=== PATIENT | female | born 1960 | race Caucasian/White ===

== ENCOUNTER 2017-09-15 19:17 | Emergency (ER) | payer OTHER ==
[~2017-09-15] VITALS: Ht 160 cm; Wt 61.0 kg
[~2017-09-15 19:17] MED LIST: BENZ100C70 PO; DIAZ5TAB4 PO; FLUO20CA38; INHALER; OMEPRAZOLE PO; PRED20TA PO; TRAZ50TA18 PO
[2017-09-15 19:20] VITALS: Ht 160 cm; Wt 61.0 kg
[2017-09-15] MEDS ORDERED: ALBUTEROL 0.083% (NEB) 2.5 MG/3 ML AMP NEB STA (19:46)
[2017-09-15] MEDS ORDERED: IPRATROPIUM (NEB) 0.5 MG/2.5 ML AMP NEB STA (19:46)
[2017-09-15] MEDS ORDERED: ASPIRIN 81 MG TAB PO STA (19:46)
[2017-09-15 21:46] LABS: ANION GAP 14 (8-16); BLOOD UREA NITROGEN 16 mg/dl (7-20); CALCIUM 9.8 mg/dl (8.4-10.2); CARBON DIOXIDE 26 mmol/L (21-31); CHLORIDE 106 mmol/L (97-110); CREATININE 0.67 mg/dl (0.44-1.00); GLUCOSE 102 mg/dl (70-220); POTASSIUM 3.7 mmol/L (3.5-5.1); SODIUM 142 mmol/L (135-144)
[2017-09-15 21:58] LABS: B-TYPE NATRIURETIC PEPTIDE 90 PG/ML (0-125)
[2017-09-15 22:09] LABS: TROPONIN-I < 0.012 ng/ml (0.00-0.12)
--- NOTE | 2017-09-15 22:14 | RADRPT ---
PROCEDURE: Portable chest x-ray. CLINICAL INDICATION: Shortness of breath, chest discomfort. TECHNIQUE: Portable AP view of the chest. COMPARISON: 08/29/2016 FINDINGS: No pulmonary edema or conolidation is identified. The cardiac silhouette is magnified. No pleural effusion is seen. There is no pneumothorax. IMPRESSION: 1. No evidence of acute cardiopulmonary disease. RPTAT: HTAR .Khris Saucedo MD, MD Date Time Electronically viewed and signed by .Khris Saucedo MD, MD on 09/15/2017 22:14 .R/
[2017-09-15] MEDS ORDERED: PRED20TA PO (22:32)
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
[2017-09-15 22:48] VITALS: BP 117/86; PULSE 78; RESP 18; TEMP 98
== END 2017-09-15 22:53 | disposition home or self-care (01) ==
LOC: FTE 19:17
DX: J45.901 Unspecified asthma with (acute) exacerbation (principal)
CPT/HCPCS: 36415; 71010; 80048; 83880; 84484; 87400; 93005; Z7502; Z7610

== ENCOUNTER 2017-11-12 16:23 | Emergency (ER) | END 2017-11-12 19:33 | disposition home or self-care (01) ==

== ENCOUNTER 2018-03-07 21:28 | Emergency (ER) | END 2018-03-08 00:38 | disposition home or self-care (01) ==

== ENCOUNTER 2019-01-07 10:13 | Emergency (ER) | payer OTHER ==
[~2019-01-07] VITALS: Wt 76.1 kg
[~2019-01-07 10:13] MED LIST changes: -BENZ100C70 PO; +DICY10CA40 PO; -INHALER; +LEVA1.2527 NEB; +LEVA15HF6 INH; +NITR-58 PO; +OMEP20CA16 PO; -OMEPRAZOLE PO; -PRED20TA PO; +TRAZ-149 PO; -TRAZ50TA18 PO
[2019-01-07 10:21] VITALS: BP 120/63; PULSE 63; RESP 18
[2019-01-07] MEDS ORDERED: LIDOCAINE 1% (MDV) 20 ML INJ SC ONE (11:00)
[2019-01-07] MEDS ORDERED: NAPR-985 PO (11:15)
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
== END 2019-01-07 11:52 | disposition home or self-care (01) ==
LOC: FTE 10:13
DX: N75.0 Cyst of Bartholin's gland (principal); J45.909 Unspecified asthma, uncomplicated
CPT/HCPCS: 56420; Z7610

== ENCOUNTER 2019-05-01 12:14 | Emergency (ER) | payer OTHER ==
[~2019-05-01] VITALS: Ht 157.5 cm; Wt 61.8 kg
[~2019-05-01 12:14] MED LIST changes: +NAPR-985 PO
[2019-05-01 12:41] VITALS: Ht 157.5 cm; Wt 61.8 kg
[2019-05-01] MEDS ORDERED: SOD CHLORIDE 0.9% 1,000 ML IV STA (14:41)
[2019-05-01] MEDS ORDERED: KETOROLAC 15 MG INJ IV STA (14:41)
[2019-05-01] MEDS ORDERED: CEFTRIAXONE 1 GM/50 ML (PMX) 50 ML IVPB ONE (15:00)
[2019-05-01] MEDS ORDERED: FLUO20CA38 PO (16:28)
[2019-05-01] MEDS ORDERED: NITR-58 PO (16:29)
[2019-05-01] MEDS ORDERED: CEPH-443 PO (16:36)
[2019-05-01] MEDS ORDERED: PHEN-537 PO (16:36)
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
[2019-05-01 16:49] VITALS: BP 131/76; PULSE 60; RESP 16
== END 2019-05-01 16:56 | disposition home or self-care (01) ==
LOC: E/R 12:14
DX: N30.00 Acute cystitis without hematuria (principal); R40.2142 Coma scale, eyes open, spontaneous, at arrival to emergency department; R40.2362 Coma scale, best motor response, obeys commands, at arrival to emergency department; R40.2252 Coma scale, best verbal response, oriented, at arrival to emergency department; J45.909 Unspecified asthma, uncomplicated
CPT/HCPCS: 80053; 81003; 83690; 85025; 87086; J0696; J1885; J7030; 36415; 96365; 96375